=== PATIENT | female | born 1980 | race Caucasian/White ===

== ENCOUNTER 2017-08-27 00:20 | Emergency (ER) | payer SELFPAY ==
[~2017-08-27] VITALS: Ht 165.1 cm; Wt 68.0 kg
[2017-08-27 00:35] VITALS: BP 119/70
[2017-08-27] MEDS ORDERED: Bactrim-DS 1 tab ORAL ONE (01:30)
[2017-08-27] MEDS ORDERED: Norco 5mg/325mg tab ORAL ONE (01:30)
[2017-08-27] MEDS ORDERED: IBUPROFEN600 MG ORAL (01:34)
[2017-08-27] MEDS ORDERED: CLINDAMYCIN HC300 MG ORAL (01:34)
--- NOTE | 2017-08-27 01:34 | Emergency Room Report ---
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 She presents with swelling and pain to the left index finger. Onset for last to 3 days but worse tonight. Pain is 10 out of 10. Worse with palpation and movement. No other injury. No drainage. Allergies: Coded Allergies: Bumble Bee (Verified Allergy, Unknown, 08/27/17) TETRACYCLINES (Verified Allergy, Unknown, 08/27/17) Patient History Past Medical History: see triage record, old chart reviewed Past Surgical History: none Pertinent Family History: none Social History: Reports: smoking Now: No Immunizations: other Reviewed Nursing Documentation: PMH: Agreed, PSxH: Agreed Nursing Documentation-PMH Past Medical History: No Stated History Review of Systems Eye: Denies: eye pain, blurred vision ENT: Denies: ear pain, nose congestion, throat swelling Respiratory: Denies: cough, shortness of breath Cardiovascular: Denies: chest pain, palpitations Gastrointestinal: Denies: abdominal pain, diarrhea, nausea, vomiting Musculoskeletal: Denies: back pain, joint pain Skin: Denies: rash Neurological: Denies: headache, numbness Endocrine: Denies: increased thirst, increased urine Hematologic/Lymphatic: Denies: easy bruising All Other Systems: negative except mentioned in HPI Physical Exam Vital Signs Date Time Temp Pulse Resp B/P (MAP) Pulse Ox O2 Delivery O2 Flow Rate FiO2 08/27/17 00:28 99.0 105 20 119/70 100 Room Air vitals normal Sp02 EP Interpretation: reviewed, normal General Appearance: well appearing, no apparent distress, alert Head: normocephalic, atraumatic Eyes: bilateral eye PERRL, bilateral eye EOMI ENT: hearing grossly normal, normal pharynx Neck: full range of motion, supple, no meningismus Respiratory: chest non-tender, lungs clear, normal breath sounds Cardiovascular #1: regular rate, rhythm, no murmur Gastrointestinal: normal bowel sounds, non tender, no mass, no organomegaly, no bruit, non-distended Musculoskeletal: back normal, gait/station normal, normal range of motion, other - Left index finger: There is significant paronychia and edema to the nail bed. Tender to palpation. Sensation normal. Psychiatric: mood/affect normal Skin: warm/dry Procedures Incision and Drainage Incision and Drainage : Consent: Verbal Site: Left index finger Blade Size: 11 I & D Procedure: betadine prep Wound Location: upper extremity Patient Tolerated: Well Complications: None Progress Something in a Betadine solution. Afterward, his 11 blade scalpel I ran it along the cuticle. There was copious amount of pus expressed. Wound irrigated. Patient tolerated procedure without a problem. Medical Decision Making Diagnostic Impression: Primary Impression: Paronychia of finger of left hand ER Course Patient presents with a paronychia of the left finger. No evidence of felon. No foreign body. We'll discharge home. Last Vital Signs Date Time Temp Pulse Resp B/P (MAP) Pulse Ox O2 Delivery O2 Flow Rate FiO2 08/27/17 00:35 99.0 98 20 119/70 100 Room Air Status: improved Disposition: HOME, SELF-CARE Condition: Stable Scripts Ibuprofen* (MOTRIN*) 600 Mg Tablet 600 MG ORAL Q8H Y for For Pain, #30 TAB 0 Refills Prov: MAGEN PHILLIPS M.D. 08/27/17 Clindamycin Hcl (CLINDAMYCIN HCL) 300 Mg Capsule 300 MG ORAL THREE TIMES A DAY, #21 CAP Prov: MAGEN PHILLIPS M.D. 08/27/17 Additional Instructions: Followup with your Dr. in 7 days. Return if symptom worsen. MAGEN PHILLIPS M.D. Aug 27, 2017 01:34
[2017-08-27 01:45] VITALS: BP 119/70
== END 2017-08-27 01:45 | disposition home or self-care (01) ==
LOC: EMR 00:55
DX: L03.012 Cellulitis of left finger (principal); F17.200 Nicotine dependence, unspecified, uncomplicated; Z88.1 Allergy status to other antibiotic agents; Z91.030 Bee allergy status
CPT/HCPCS: 10060; 99283